=== PATIENT | male | born 1960 | race Caucasian/White ===

== ENCOUNTER 2021-03-16 15:24 | Emergency (ER) | payer MEDICAID ==
[~2021-03-16] VITALS: Ht 172.7 cm; Wt 74.8 kg
[2021-03-16 15:47] VITALS: BP 140/86
--- NOTE | 2021-03-16 15:50 | NUR ---
The patient bibs for c/o RUE pain, numbness and weakness,unable to frame catcher x 2 days. Rates pain 5/10. In room air and denies SOB. Respiration regular and unlabored. Warm blanket provided for comfort. Will continue to monitor the patient.
[2021-03-16] MEDS ORDERED: KETOROLAC TROMETHAMINE 15 MG/ML VIAL ONE (17:42)
[2021-03-16] MEDS ORDERED: IBUP-1955 PO (17:45)
[2021-03-16] MEDS: KETOROLAC TROMETHAMINE INJ 30 MG/ML VIAL IM ONE (17:48)
--- NOTE | 2021-03-16 18:00 | NUR ---
Patient discharged to home in stable condition. Written and verbal after care instructions given. Patient verbalizes understanding of instruction. The patient left ER in stable condition.
[2021-03-17] MEDS ORDERED: METH4TAB17 PO (18:45)
== END 2021-03-16 18:01 | disposition home or self-care (01) ==
LOC: ER 15:28
DX: M54.10 Radiculopathy, site unspecified (principal); M79.601 Pain in right arm
CPT/HCPCS: 96372; 99283; J1885

== ENCOUNTER 2021-03-17 04:23 | Emergency (ER) | payer MEDICAID ==
[~2021-03-17] VITALS: Ht 172.7 cm; Wt 74.8 kg
[~2021-03-17 04:23] MED LIST: IBUP-1955 PO
--- NOTE | 2021-03-17 04:30 | NUR ---
BIB SELF. PT IS ALERT AND ORIENTEDX4. RESPIRATION IS NORMAL AND UNLABORED. NO SOB. NO S/S OF DISTRESS NOTED. NOTED R ARM SWOLLEN AND [PAIN RADIATED TO SHOULDER. MD AT THE BEDSIDE. PT IS ATTACHED TO MONITOR AND PULSE OX. GAVE WARM BLANKET AND CALL LIGHT IS WITHIN REACH.
[2021-03-17] MEDS ORDERED: HYDROCODONE/APAP 10/325MG TABLET ONE (04:42)
[2021-03-17] MEDS ORDERED: ONDANSETRON 4 MG TAB.RAPDIS ONE (04:43)
--- NOTE | 2021-03-17 04:55 | NUR ---
LAC# 20 IS INITIATED. BLOOD OBTAINED AND SENT TO LAB.
--- NOTE | 2021-03-17 04:58 | NUR ---
XRAY AT THE BEDSIDE
[2021-03-17] MEDS ORDERED: HYDROCODONE/APAP 10/325MG TABLET PO ONE (05:00)
[2021-03-17] MEDS ORDERED: ONDANSETRON 4 MG TAB.RAPDIS SL ONE (05:00)
[2021-03-17 05:05] LABS: BASOPHILS # (AUTO) 0.1 /CMM (0.0-0.2); BASOPHILS % (AUTO) 0.8 % (0.0-2.0); EOSINOPHILS % (AUTO) 2.4 % (0.0-6.0); HEMATOCRIT 40 % (39-51); HEMOGLOBIN 13.6 g/dL (13.5-17.5); LYMPHOCYTES # (AUTO) 1.9 /CMM (0.8-4.8); LYMPHOCYTES % (AUTO) 29.4 % (20.0-44.0); MEAN CORPUSCULAR HGB CONC 34 g/dl (31.0-36.0); MEAN CORPUSCULAR VOLUME 92 fL (80-96); MONOCYTES # (AUTO) 0.8 /CMM (0.1-1.30); MONOCYTES % (AUTO) 12.3 % (2.0-12.0); NEUTROPHILS # (AUTO) 3.5 /CMM (1.8-8.9); NEUTROPHILS % (AUTO) 55.1 % (43.0-81.0); PLATELET COUNT (AUTO) 206 /CMM (150-450); RED BLOOD CELL COUNT(AUTO) 4.41 MIL/uL (4.5-6.0); WHITE BLOOD COUNT (AUTO) 6.4 K/uL (4.3-11.0)
--- NOTE | 2021-03-17 05:12 | NUR ---
URINE AND COVID SWAB SENT TO LAB.
[2021-03-17 05:18] LABS: CALCIUM, SERUM 8.2 mg/dL (8.5-10.1); POTASSIUM 4.4 mmol/L (3.5-5.1)
[2021-03-17 05:21] LABS: ALBUMIN 3.4 g/dL (3.4-5.0); BILIRUBIN,TOTAL 0.1 mg/dL (0.2-1.0); TOTAL PROTEIN, SERUM 7.1 g/dL (6.4-8.2)
--- NOTE | 2021-03-17 05:25 | NUR ---
ULTRASOUND AT THE BEDSIDE
[2021-03-17] MEDS ORDERED: HYDROMORPHONE 1 MG/1 ML DISP.SYRIN ONE ×2 (05:44→08:44)
--- NOTE | 2021-03-17 05:55 | NUR ---
PLACED PT ON OXYGEN FOR COMFORT.
[2021-03-17] MEDS ORDERED: HYDROMORPHONE 1 MG/1 ML DISP.SYRIN IV ONE ×2 (06:00→09:00)
--- NOTE | 2021-03-17 07:05 | NUR ---
GAVE REPORT TO CADY JENNINGS
--- NOTE | 2021-03-17 10:46 | NUR ---
PATIENT ASLEEP, IN NO DISTRESS NOTED. NEEDS ATTENDED.
--- NOTE | 2021-03-17 11:30 | NUR ---
PT TAKEN TO MRI.
--- NOTE | 2021-03-17 16:00 | NUR ---
CT SPINE ADDED BY DR. CROSS. PATIENT A/OX4, AMBULATORY WITH STEADY GAIT. NO DISTRESS NOTED. STILL C/O MILD PAIN OF HIS RIGHT HAND. INSTRUCTED PATIENT TO ELEVATE.
--- NOTE | 2021-03-17 17:23 | NUR ---
PATIENT CAME BACK FROM THE MRI. STILLW AITING FOR RESULT BEFORE PATIENT CAN EAT.
--- NOTE | 2021-03-17 18:43 | NUR ---
IV removed. Catheter intact and site benign. Pressure and 4x4 applied to site. No bleeding noted.
[2021-03-17] MEDS ORDERED: predniSONE 10 MG TABLET ONE (18:44)
[2021-03-17] MEDS ORDERED: predniSONE 20 MG TABLET ONE (18:44)
[2021-03-17] MEDS ORDERED: METH4TAB17 PO (18:45)
[2021-03-17] MEDS ORDERED: predniSONE 50 MG TABLET PO ONE (19:00)
--- NOTE | 2021-03-17 19:26 | NUR ---
PATIENT A/OX4, BREATHING EVEN AND UNLABORED, NO SOB NOTED, NEEDS ATTENDED. RX PROVIDED, COPIES OF ALL IMAGES GIVEN TO THE PATIENT. Patient discharged to home in stable condition. Written and verbal after care instructions given. Patient verbalizes understanding of instruction.
[2021-03-17 19:27] VITALS: BP 146/71
== END 2021-03-17 19:28 | disposition home or self-care (01) ==
LOC: ER 04:23
DX: M50.122 Cervical disc disorder at C5-C6 level with radiculopathy (principal); M79.89 Other specified soft tissue disorders; G62.9 Polyneuropathy, unspecified; M65.831 Other synovitis and tenosynovitis, right forearm; Z82.49 Family history of ischemic heart disease and other diseases of the circulatory system; Z20.822 Contact with and (suspected) exposure to COVID-19
CPT/HCPCS: 29105; 36415; 72141; 73060; 73090; 73130; 73220; 73223; 80048; 80076; 85025; 85730; 87081; 87426; 93971; 96374; 96376; 99285; C9803; J1170 ×2; J7512 ×2; Q0162